=== PATIENT | female | born 1955 | race Caucasian/White ===

== ENCOUNTER → 2016-10-10 | Outpatient (CLI) | payer OTHER ==
--- NOTE | 2016-10-10 13:57 | MA ---
Left Diagnostic Mammogram Indication: New parenchymal asymmetry in upper left breast. Technique: Spot-compressed MLO and true lateral view of the left breast. Comparison: Screening mammograms dating back to November 02, 2009. Findings: The asymmetry completely resolves on the spot compression view. The underlying fibroglandul ar tissue has a similar pattern to the 2011 mammograms. The true lateral view is normal. Impression: Benign dense superimposed fibroglandular tissue in the upper left breast. BI-RADS 2: Benign Finding. Recommendation: Resume routine annual screening in September 2017, unless otherwise clinically indicat ed. Patient was notified of the negative results and recommendations at time of study completion.
== END ==
LOC: BMCIMAGING 13:08
PROVIDERS: ATTEND Family Medicine
DX: R92.2 Inconclusive mammogram (principal)
CPT/HCPCS: G0206

== ENCOUNTER → 2019-03-02 | Outpatient (CLI) | payer OTHER | LOC: BMCIMAGING 08:52 ==